=== PATIENT | male | born 1985 | race Caucasian/White ===

== ENCOUNTER 2017-05-10 06:02 | Day surgery (SDC) | payer OTHER ==
[~2017-05-10] VITALS: Ht 182.9 cm; Wt 154.2 kg
[~2017-05-10 06:02] MED LIST: ALBU90OI INH; Bactrim Ds Tab1 EACH PO; DICL250 PO; FURO40 PO; GUAIFEN-CODEINE10 ML PO; IBUP800 PO; Keflex500 MG PO; LEVO750 PO; POTCHL20ER PO; Percocet 5-3251 EACH PO; Tylenol With C1 EACH PO
== END 2017-05-10 23:19 | disposition home or self-care (01) ==
LOC: ORSCMMR 06:02
PROVIDERS: Surgery
PROC: 0WUF0JZ Supplement Abdominal Wall with Synthetic Substitute, Open Approach (ICD-10-PCS; principal; 2017-05-10 07:30)
DX: K42.0 Umbilical hernia with obstruction, without gangrene (principal); G47.33 Obstructive sleep apnea (adult) (pediatric); J45.909 Unspecified asthma, uncomplicated; E66.01 Morbid (severe) obesity due to excess calories; Z68.42 Body mass index [BMI] 45.0-49.9, adult
CPT/HCPCS: C1781; J0690; J1100; J1885; J2250; J2405; J2710; J7120

== ENCOUNTER 2017-11-05 22:19 | Emergency (ER) | payer OTHER ==
[~2017-11-05] VITALS: Ht 185.4 cm; Wt 163.3 kg
[2017-11-06] MEDS ORDERED: Robaxin-750750 MG PO (02:23)
[2017-11-06] MEDS ORDERED: METPRE4DP PO (02:23)
== END 2017-11-06 02:35 | disposition home or self-care (01) ==
LOC: ER 22:19
DX: M54.31 Sciatica, right side (principal); Z88.1 Allergy status to other antibiotic agents
CPT/HCPCS: 93971; 96374; 96375; 99284; J1885; J3010

== ENCOUNTER 2019-05-10 19:45 | Emergency (ER) | payer OTHER ==
[~2019-05-10] VITALS: Ht 185.4 cm; Wt 122.5 kg
[~2019-05-10 19:45] MED LIST changes: +METPRE4DP PO; +Robaxin-750750 MG PO
[2019-05-10 20:30] LABS: Source, Urine Clean Catch
[2019-05-10 20:32] LABS: Bilirubin, Urine Neg (Neg); Blood, Urine Neg (Neg); Glucose Qualitative, Urine Neg (Neg); Ketones, Urine 1+ (Neg); Leukocyte Esterase, Urine Neg (Neg); Nitrite, Urine Neg (Neg); Protein, Urine 1+ (Neg); Urobilinogen, Urine 1+ (Normal)
[2019-05-10 20:44] LABS: Appearance, Urine Clear (Clear); Color, Urine Yellow (P-Yellow)
[2019-05-10 20:48] LABS: BASOPHILS ABSOLUTE AUTO 0.05 K/mm3 (0.00-0.23); BASOPHILS PERCENT AUTO 1 % (0-2); EOSINOPHILS PERCENT AUTO 5 % (0-6); Hematocrit 46.2 % (37.0-53.0); Hemoglobin 15.2 g/dL (13.5-17.5); IMMATURE GRAN ABSOLUTE AUTO 0.03 K/mm3 (0.00-0.10); IMMATURE GRAN PERCENT AUTO 0 % (0-1); LYMPHOCYTES ABSOLUTE AUTO 2.16 K/mm3 (0.84-5.20); LYMPHOCYTES PERCENT AUTO 26 % (21-46); MONOCYTES ABSOLUTE AUTO 0.73 K/mm3 (0.16-1.47); MONOCYTES PERCENT AUTO 9 % (4-13); Mean Corpuscular HGB 28.6 pg (26.0-34.0); Mean Corpuscular HGB Conc 32.9 g/dL (31.5-36.5); Mean Corpuscular Volume 87 fL (80-100); Mean Platelet Volume 9.6 fL (9.1-12.4); NEUTROPHILS ABSOLUTE AUTO 4.89 K/mm3 (1.96-9.15); NEUTROPHILS PERCENT AUTO 59 % (41-73); Platelet Count 359 K/mm3 (150-400); RDW Coefficient Variation 13.5 % (11.7-14.2); Red Blood Cell Count 5.31 M/mm3 (4.30-5.90); White Blood Cell Count 8.26 K/mm3 (4.00-11.30)
[2019-05-10 21:06] LABS: Alanine Aminotransfer (ALT/SGP 39 U/L (12-78); Albumin, Blood 3.6 g/dL (3.4-5.0); Alk Phos 55 U/L (50-136); Anion Gap 8 mmol/L (6-16); Aspartate Aminotrans (AST/SGOT 26 U/L (12-37); Bilirubin, Total 0.4 mg/dL (0.1-1.0); Blood Urea Nitrogen 21 mg/dL (8-24); Bun/Creatinine Ratio 19.6 (12.0-20.0); CO2, Blood 24 mmol/L (21-32); Calcium, Blood 8.6 mg/dL (8.5-10.1); Chloride, Blood 110 mmol/L (98-108); Creatinine, Blood 1.07 mg/dL (0.60-1.20); Globulin, Blood 3.7 g/dL (2.2-4.0); Glomerular Filtration Rate >60 (60-); Glucose, Blood 106 mg/dL (70-99); Potassium, Blood 4.2 mmol/L (3.5-5.5); Sodium, Blood 142 mmol/L (136-145); Total Protein, Blood 7.3 g/dL (6.4-8.2)
[2019-05-10] MEDS ORDERED: MONT10T PO (21:38)
[2019-05-10] MEDS ORDERED: Sudogest30 MG PO (21:38)
[2019-05-10] MEDS ORDERED: Atarax10 MG PO (21:39)
[2019-05-10] MEDS ORDERED: Prednisone20 MG PO (21:55)
[2019-05-10] MEDS ORDERED: AZIT250 PO (21:55)
== END 2019-05-10 22:03 | disposition home or self-care (01) ==
LOC: ER 19:45
PROVIDERS: Physician Assistant
DX: N43.3 Hydrocele, unspecified (principal); R05 Cough; F17.210 Nicotine dependence, cigarettes, uncomplicated; Z88.1 Allergy status to other antibiotic agents
CPT/HCPCS: 36415; 71046; 76870; 80053; 85025; 94640; 99284-25; J7512

== ENCOUNTER → 2019-07-19 | Outpatient (CLI) | payer OTHER ==
[~2019-07-19] MED LIST changes: +AZIT250 PO; +Atarax10 MG PO; +MONT10T PO; +Prednisone20 MG PO; +Sudogest30 MG PO
== END ==
LOC: LAB SHORT 08:10 → LAB 08:10
DX: J02.9 Acute pharyngitis, unspecified (principal)
CPT/HCPCS: 87081

== ENCOUNTER 2020-01-01 11:14 | Day surgery (SDC) | payer OTHER ==
[~2020-01-01] VITALS: Ht 185.4 cm; Wt 129.5 kg
[~2020-01-01 11:14] MED LIST changes: +EPIPEN 2-P0.3 MG/0.1; +SILD50TA PO
[2020-01-01] MEDS ORDERED: QSYMIA 7.5 MG-1 EAC1 (11:38)
--- NOTE | 2020-01-01 13:18 | NUR ---
01/01/20 1318 Nevaeh Darling LATE ENTRY----PATIENT ONLY COMPLAINT AFTER PROCEDURE WAS HEADACHE. HE ADMITTED THAT HE DRINKS A LOT OF CAFFEINE THROUGHOUT THE DAY AND HAS NOT HAD ANY YET TODAY. HE WAS GIVEN A DRINK OF HIS CHOICE THAT HAD CAFFEINE AND HE VERBALIZES UNDERSTANDING THAT HE WILL CALL IF HEADACHE WORSENS
== END 2020-01-01 13:10 | disposition home or self-care (01) ==
LOC: ORSCSDS 11:14
PROVIDERS: Student in an Organized Health Care Education/Training Program
PROC: 0DBL8ZX Excision of Transverse Colon, Via Natural or Artificial Opening Endoscopic, Diagnostic (ICD-10-PCS; principal; 2020-01-01 12:30)
PROC: 0DBM8ZX Excision of Descending Colon, Via Natural or Artificial Opening Endoscopic, Diagnostic (ICD-10-PCS; principal; 2020-01-01 12:30)
PROC: 0DBE8ZX Excision of Large Intestine, Via Natural or Artificial Opening Endoscopic, Diagnostic (ICD-10-PCS; principal; 2020-01-01 12:30)
PROC: 0DBP8ZX Excision of Rectum, Via Natural or Artificial Opening Endoscopic, Diagnostic (ICD-10-PCS; principal; 2020-01-01 12:30)
DX: R19.7 Diarrhea, unspecified (principal); K52.9 Noninfective gastroenteritis and colitis, unspecified; D12.3 Benign neoplasm of transverse colon; D12.8 Benign neoplasm of rectum; K62.1 Rectal polyp; K63.5 Polyp of colon; G47.33 Obstructive sleep apnea (adult) (pediatric); J45.909 Unspecified asthma, uncomplicated; F17.210 Nicotine dependence, cigarettes, uncomplicated; R73.03 Prediabetes; E66.01 Morbid (severe) obesity due to excess calories; Z68.37 Body mass index [BMI] 37.0-37.9, adult; Z79.899 Other long term (current) drug therapy
CPT/HCPCS: 88305; J2250; J2704; J7120

== ENCOUNTER 2020-02-26 02:20 | Emergency (ER) | payer OTHER ==
[~2020-02-26] VITALS: Ht 185.4 cm; Wt 120.2 kg
[~2020-02-26 02:20] MED LIST changes: +QSYMIA 7.5 MG-1 EAC1
[2020-02-26] MEDS ORDERED: KEFLEX500 MG PO (03:02)
== END 2020-02-26 03:15 | disposition home or self-care (01) ==
LOC: ER 02:20
DX: H60.12 Cellulitis of left external ear (principal); F17.210 Nicotine dependence, cigarettes, uncomplicated; Z88.1 Allergy status to other antibiotic agents; Z79.899 Other long term (current) drug therapy
CPT/HCPCS: 96372; 99282-25; A9270-GY; J1885

== ENCOUNTER 2020-05-05 06:30 | Emergency (ER) | payer OTHER ==
[~2020-05-05] VITALS: Ht 185.4 cm; Wt 131.5 kg
[~2020-05-05 06:30] MED LIST changes: +KEFLEX500 MG PO
[2020-05-05] MEDS ORDERED: IBUP800 PO (06:47)
[2020-05-05] MEDS ORDERED: CEPH500 PO (06:47)
[2020-05-05] MEDS ORDERED: CIPRODEX OTIC7.5 M1 LEFTEAR (06:47)
[2020-05-05] MEDS ORDERED: CODACE30 PO (06:47)
== END 2020-05-05 06:50 | disposition home or self-care (01) ==
LOC: ER 06:30
DX: H60.12 Cellulitis of left external ear (principal); H60.92 Unspecified otitis externa, left ear; F17.210 Nicotine dependence, cigarettes, uncomplicated; Z88.1 Allergy status to other antibiotic agents
CPT/HCPCS: 99283; A9270-GY

== ENCOUNTER 2020-12-30 21:32 | Emergency (ER) | payer OTHER ==
[~2020-12-30] VITALS: Ht 185.4 cm; Wt 117.9 kg
[~2020-12-30 21:32] MED LIST changes: +CEPH500 PO; +CIPRODEX OTIC7.5 M1 LEFTEAR; +CODACE30 PO
== END 2020-12-30 23:50 | disposition home or self-care (01) ==
LOC: ER 21:32
DX: B34.9 Viral infection, unspecified (principal); F17.210 Nicotine dependence, cigarettes, uncomplicated; Z88.1 Allergy status to other antibiotic agents; Z20.822 Contact with and (suspected) exposure to COVID-19
CPT/HCPCS: 99282

== ENCOUNTER → 2021-01-23 | Outpatient (CLI) | payer OTHER | END | disposition home or self-care (01) | LOC: LAB 16:35 → LAB SHORT 16:35 | DX: Z20.822 Contact with and (suspected) exposure to COVID-19 (principal) | CPT/HCPCS: U0003 ==

== ENCOUNTER 2022-07-04 16:57 | Emergency (ER) | payer OTHER ==
[~2022-07-04] VITALS: Ht 182.9 cm; Wt 124.7 kg
[2022-07-04] MEDS ORDERED: Amoxicillin875 MG PO (17:18)
== END 2022-07-04 17:20 | disposition home or self-care (01) ==
LOC: ER 16:57
DX: H60.02 Abscess of left external ear (principal); F17.210 Nicotine dependence, cigarettes, uncomplicated; Z88.1 Allergy status to other antibiotic agents
CPT/HCPCS: 69000; 99282-25

== ENCOUNTER 2022-07-09 02:42 | Emergency (ER) | payer OTHER ==
[~2022-07-09] VITALS: Ht 185.4 cm; Wt 124.7 kg
[~2022-07-09 02:42] MED LIST changes: +Amoxicillin875 MG PO
[2022-07-09] MEDS ORDERED: SULTRIDS PO (03:20)
== END 2022-07-09 03:47 | disposition home or self-care (01) ==
LOC: ER 02:42
DX: H60.02 Abscess of left external ear (principal); F17.210 Nicotine dependence, cigarettes, uncomplicated; Z88.1 Allergy status to other antibiotic agents
CPT/HCPCS: 69000; 99282-25

== ENCOUNTER 2022-12-31 14:55 | Emergency (ER) | payer OTHER ==
[~2022-12-31] VITALS: Ht 185.4 cm; Wt 113.4 kg
[~2022-12-31 14:55] MED LIST changes: +SULTRIDS PO
[2022-12-31 15:01] VITALS: BP 140/95
== END 2022-12-31 15:40 | disposition home or self-care (01) ==
LOC: ER 14:55
DX: S61.112A Laceration without foreign body of left thumb with damage to nail, initial encounter (principal); Z23 Encounter for immunization; F17.210 Nicotine dependence, cigarettes, uncomplicated; Z88.1 Allergy status to other antibiotic agents; Z79.899 Other long term (current) drug therapy; W26.0XXA Contact with knife, initial encounter
CPT/HCPCS: 12001; 90471; 90714; 90715; 99282-25

== ENCOUNTER 2023-03-27 17:47 | Emergency (ER) | payer OTHER ==
[~2023-03-27] VITALS: Ht 185.4 cm; Wt 122.5 kg
[2023-03-27 20:59] VITALS: BP 133/79
== END 2023-03-27 21:39 | disposition home or self-care (01) ==
LOC: ER 17:47
DX: R51.9 Headache, unspecified (principal); F17.210 Nicotine dependence, cigarettes, uncomplicated; Z88.1 Allergy status to other antibiotic agents; Z79.899 Other long term (current) drug therapy
CPT/HCPCS: 70450; 96374; 96375; 99284-25; J0780; J1200; J1885; J2405; J7030

== ENCOUNTER 2023-04-09 08:00 | Emergency (ER) | payer OTHER ==
[~2023-04-09] VITALS: Ht 185.4 cm; Wt 124.7 kg
[2023-04-09] MEDS ORDERED: BUTALBITAL-ASA1 EACH PO (08:18)
[2023-04-09] MEDS ORDERED: IBU800 MG PO (08:18)
[2023-04-09] MEDS ORDERED: CYCL10 PO (11:51)
[2023-04-09 11:59] VITALS: BP 134/88
== END 2023-04-09 12:00 | disposition home or self-care (01) ==
LOC: ER 08:00
DX: M54.2 Cervicalgia (principal); R51.9 Headache, unspecified; F17.210 Nicotine dependence, cigarettes, uncomplicated; Z79.899 Other long term (current) drug therapy
CPT/HCPCS: 99283

== ENCOUNTER 2023-11-10 11:14 | Inpatient (IN) | payer OTHER ==
[~2023-11-10] VITALS: Ht 185.4 cm; Wt 110.6 kg
[~2023-11-10 11:14] MED LIST changes: +BUTALBITAL-ASA1 EACH PO; +CYCL10 PO; +IBU800 MG PO
[2023-11-10 12:02] LABS: Albumin, Blood 3.7 g/dL (3.4-5.0); Albumin/Globulin Ratio 0.9 (0.8-1.8); Bilirubin, Total 0.8 mg/dL (0.1-1.0); Bun/Creatinine Ratio 28.5 (12.0-20.0); Calcium, Blood 9.5 mg/dL (8.5-10.1); Creatinine, Blood 0.63 mg/dL (0.60-1.20); Globulin, Blood 4.1 g/dL (2.2-4.0); Magnesium, Blood 1.8 mg/dL (1.6-2.4); Total Protein, Blood 7.8 g/dL (6.4-8.2)
[2023-11-10 12:13] LABS: Influenza A, PCR NEGATIVE (NEGATIVE); Influenza B, PCR NEGATIVE (NEGATIVE); Resp Syncytial Virus, PCR NEGATIVE (NEGATIVE); SARS-Cov-2 (COVID-19) PCR, MMC NEGATIVE (NEGATIVE)
[2023-11-10 13:30] LABS: BASOPHILS ABSOLUTE AUTO 0.02 K/mm3 (0.00-0.23); BASOPHILS PERCENT AUTO 0 % (0-2); EOSINOPHILS ABSOLUTE AUTO 0.16 K/mm3 (0.00-0.68); EOSINOPHILS PERCENT AUTO 2 % (0-6); Hematocrit 47.4 % (37.0-53.0); Hemoglobin 16.3 g/dL (13.5-17.5); IMMATURE GRAN ABSOLUTE AUTO 0.02 K/mm3 (0.00-0.10); IMMATURE GRAN PERCENT AUTO 0 % (0-1); LYMPHOCYTES ABSOLUTE AUTO 2.05 K/mm3 (0.84-5.20); LYMPHOCYTES PERCENT AUTO 28 % (21-46); MONOCYTES ABSOLUTE AUTO 1.02 K/mm3 (0.16-1.47); MONOCYTES PERCENT AUTO 14 % (4-13); Mean Corpuscular HGB Conc 34.4 g/dL (31.5-36.5); Mean Corpuscular Volume 81 fL (80-100); Mean Platelet Volume 11.4 fL (9.1-12.4); NEUTROPHILS ABSOLUTE AUTO 4.18 K/mm3 (1.96-9.15); NEUTROPHILS PERCENT AUTO 56 % (41-73); Platelet Count 308 K/mm3 (150-400); RDW Coefficient Variation 12.7 % (11.7-14.2); RDW Standard Deviation 37.8 fL (35.1-46.3); Red Blood Cell Count 5.83 M/mm3 (4.30-5.90); White Blood Cell Count 7.45 K/mm3 (4.00-11.30)
[2023-11-10] MEDS ORDERED: NS 1,000 ML IV SCH (15:05)
--- NOTE | 2023-11-10 15:59 | NUR ---
REPORT RECIEVED [id number] FROM ER NURSE.
[2023-11-10] MEDS ORDERED: Metoprolol Tartrate 25 MG Tab PO SCH (16:00)
[2023-11-10 16:14] LABS: CHOL/HDL RATIO 3.8; Cholesterol 90 mg/dL (50-200); HDL Cholesterol 24 mg/dL (>39); LDL/HDL RATIO 1.9; Low Density Lipoprotein Chol 46 mg/dL (0-110); Triglycerides 100 mg/dL (30-160); Very Low Density Lipoprot Chol 20 mg/dL (6-32)
[2023-11-10 16:16] VITALS: BP 128/102
--- NOTE | 2023-11-10 16:47 | NUR ---
ARRIVAL TO UNIT PT ARRIVED TO PCU AT 1605 VIA GURNEY AND ON RA. PT A/O X4 AND COOLPERATIVE. PT ABLE TO TRANSFER FROM GURNEY TO BED INDEPENDENTLY, TOLERATED WELL. HR AFIB 100-120'S AT ARRIVAL AND DID NOT INCREASE WHEN AMBULATING TO BED. PT ORIENTED TO ROOM AND CALL LIGHT. PT PROVIDED LIGHTERS THAT HE HAD ON HIS PERSON, LIGHTERS IN LOCK BOX OUTSIDE OF ROOM. PT INFORMED THAT [facility] IS A SMOKE FREE FACILITY AND THAT ANY VISITORS NEED TO LEAVE IGNITION RISK DEVICES IN THEIR CAR, PT AGREED. PT LUNGS WHEEZY T/O AT TIME OF ARRIVAL, PT HAS HISTORY OF ASTHMA AND IS A 2PK/DAY SMOKER.
[2023-11-10] MEDS ORDERED: Nicotine Polacrilex 2 MG Gum PO PRN (17:00)
[2023-11-10 17:03] LABS: Free Thyroxine 4.51 ng/dL (0.70-1.60)
[2023-11-10 17:05] LABS: Triiodothyronine, Free 17.82 pg/mL (2.18-3.98)
[2023-11-10] MEDS ORDERED: Methimazole 10 MG Tab PO SCH ×2 (18:00)
[2023-11-10] MEDS ORDERED: Ipratropium/Albuterol SulF 2.5-0.5MG/3 ML Amp INH PRN (19:35)
[2023-11-10 19:42] LABS: Stool Occult Blood Guaiac 1 Neg (Neg)
[2023-11-10 19:55] VITALS: BP 118/82
[2023-11-10] MEDS ORDERED: Lactated Ringer's 1,000 ML IV SCH (20:00)
[2023-11-10 20:57] LABS: Adenovirus F 40/41 Not Detected (NOT DETECT); Astrovirus Not Detected (NOT DETECT); Campylobacter Sp Not Detected (NOT DETECT); Cryptosporidium Not Detected (NOT DETECT); Cyclospora Cayetanensis Not Detected (NOT DETECT); E. Coli O157 Not Detected (NOT DETECT); Entamoeba Histolytica Not Detected (NOT DETECT); Enteroaggregative E. coli-EAEC Not Detected (NOT DETECT); Enteropathogenic E. coli-EPEC Not Detected (NOT DETECT); Enterotoxigenic E. coli-ETEC Not Detected (NOT DETECT); Giardia Lamblia Not Detected (NOT DETECT); Norovirus GI/GII Not Detected (NOT DETECT); Plesiomonas Shigelloides Not Detected (NOT DETECT); Rotavirus A Not Detected (NOT DETECT); Salmonella Sp Not Detected (NOT DETECT); Sapovirus Not Detected (NOT DETECT); Shiga Toxin-prod E. coli-STEC Not Detected (NOT DETECT); Shigella/Enteroin E. coli-EIEC Not Detected (NOT DETECT); Vibrio Cholerae Not Detected (NOT DETECT); Vibrio Sp Not Detected (NOT DETECT); Yersinia Enterocolitica Not Detected (NOT DETECT)
[2023-11-10 23:00] VITALS: BP 124/76
[2023-11-11] MEDS ORDERED: Hydrocortisone Sod Succinate 100 MG Vial IV SCH
[2023-11-11] MEDS ORDERED: Propranolol HCL 20 MG TAB PO SCH
--- NOTE | 2023-11-11 04:38 | NUR ---
SHIFT SUMMARY. SHIFT HAS BEEN UNREMARKABLE. PT HAS BEEN AOX4, PLEASANT, COOPERATIVE WITH CARE, CALLS APPROPRIATELY, ABLE TO MAKE NEEDS KNOWN. INDEPENDENT WITHIN ROOM, CALLS APPROPRIATELY FOR ASSISTANCE. TELE ON THROUGHOUT SHIFT, NO RHYTHM CHANGES HR HAS BEEN BETWEEN 90s-100s THROUGHOUT SHIFT. BP STABLE. MAINTAINS ADEQUATE SATURATION ON ROOM AIR. NO PAIN REPORTED THROUGHOUT SHIFT. HAS BEEN WEARING CPAP THROUGHOUT MOST OF SHIFT. BED LOCKED IN LOWEST POSITION. CALL LIGHT LEFT WTIHIN REACH. CONTINUING TO MONITOR.
[2023-11-11 04:50] VITALS: BP 125/56
[2023-11-11 06:11] LABS: Albumin, Blood 3.2 g/dL (3.4-5.0); Albumin/Globulin Ratio 0.9 (0.8-1.8); Bilirubin, Total 0.6 mg/dL (0.1-1.0); Bun/Creatinine Ratio 32.9 (12.0-20.0); Calcium, Blood 9.2 mg/dL (8.5-10.1); Creatinine, Blood 0.49 mg/dL (0.60-1.20); Globulin, Blood 3.6 g/dL (2.2-4.0); Potassium, Blood 4.1 mmol/L (3.5-5.5); Total Protein, Blood 6.8 g/dL (6.4-8.2)
[2023-11-11 07:56] VITALS: BP 131/86
[2023-11-11] MEDS ORDERED: Enoxaparin 40 MG/0.4 ML SYR SC SCH (09:00)
[2023-11-11] MEDS ORDERED: Psyllium 1 EA Pack PO SCH (09:00)
[2023-11-11 11:27] VITALS: BP 134/73
--- NOTE | 2023-11-11 15:04 | NUR ---
ASSUMPTION OF CARE Pt resting in bed, oriented x4, on room air. Monitor shows afib with HR 90's-120, denies chest pain or shortness of breath.
[2023-11-11 16:21] VITALS: BP 127/87
--- NOTE | 2023-11-11 16:24 | NUR ---
REPORT GIVEN TO MEDICAL FLOOR NURSE, PT TRANSPORTED TO ROOM 341 VIA WHEELCHAIR
--- NOTE | 2023-11-11 17:19 | NUR ---
PATIENT TRANSFERRED FROM PCU APPROX 1630 TODAY. HE IS AO X 4. INDEPENDANT IN ROOM. CURRENLTY ON TELE RHYTHM IS AFIB AT 95. HIS LUNGS ARE CLEAR THROUGHOUT AND CALL LIGHT IN REACH. IV IS SALINE LOCKED.
[2023-11-11 19:37] VITALS: BP 138/83
[2023-11-11] MEDS ORDERED: Acetaminophen 500 MG Tab PO PRN (20:15)
[2023-11-12 03:41] VITALS: BP 114/92
--- NOTE | 2023-11-12 04:18 | NUR ---
SHIFT SUMMARY PATIENT HAD NO ACUTE CHANGES. AXOX 4 AND INDEPENDENT IN ROOM. TELE MONITOR AFIB 90'S. PIV INTACT. DENIES CHEST PAIN, SOB, AND N/V. VSS-FEBRILE WITH LOW GRADE TEMP 99.4. REPORTED MIRANDA X ONE AND TYLENOL 500 MG GIVEN X ONE AND NICORETTE GUM GIVEN FOR NICOTINE CRAVINGS. SLEPT SECOND PART OF SHIFT. CALL LIGHT IN REACH. BED IN LOWEST POSITION. WILL CONTINUE TO MONITOR UNTIL DAY SHIFT NURSE ASSUMES CARE.
--- NOTE | 2023-11-12 06:14 | NUR ---
PATIENT REPORTS HE WANTS TO LEAVE AMA. HAVING INCREASE AGITATION. TELE MONITOR REPORTS HR UP TO 150. PATIENT PULLING TELE LEADS OFF AND WANTS HIS PIV REMOVED. PATIENT ENCOURAGE TO STAY UNTIL DR CAN DC HIM. PATIENT WANTS TO LEAVE WHEN FAMILY GETS HERE FROM [place]. RJ.
[2023-11-12 06:34] LABS: Bun/Creatinine Ratio 24.6 (12.0-20.0); Calcium, Blood 9.2 mg/dL (8.5-10.1); Creatinine, Blood 0.53 mg/dL (0.60-1.20)
--- NOTE | 2023-11-12 06:37 | NUR ---
PATIENT LEFT AMA AND SIGNED AMA FORM. PERSONAL BELONGINGS TAKEN. WILL NOTIFY HOSPITALIST.
[2023-11-13 09:49] LABS: TSH RECEPTOR ANTIBODY 6.06 IU/L (<=1.75)
[2023-11-13] MEDS ORDERED: AMOCLA875 PO (14:10)
[2023-11-13] MEDS ORDERED: METHI10 PO (14:13)
[2023-11-13] MEDS ORDERED: METO50 PO (14:13)
== END 2023-11-12 06:44 | disposition left against medical advice (07) | DRG 310 ==
LOC: ER 11:14 → PCU 11:15 → MEDS 11-11 17:02
PROVIDERS: Family Medicine; Physician Assistant; Student in an Organized Health Care Education/Training Program; ADMIT Hospitalist
DX: I48.91 Unspecified atrial fibrillation (principal); J45.909 Unspecified asthma, uncomplicated; R19.7 Diarrhea, unspecified; E05.90 Thyrotoxicosis, unspecified without thyrotoxic crisis or storm; F17.210 Nicotine dependence, cigarettes, uncomplicated; Z53.29 Procedure and treatment not carried out because of patient's decision for other reasons; R63.4 Abnormal weight loss; E04.1 Nontoxic single thyroid nodule; Z88.1 Allergy status to other antibiotic agents; Z79.899 Other long term (current) drug therapy; Z98.890 Other specified postprocedural states; Z68.31 Body mass index [BMI] 31.0-31.9, adult
CPT/HCPCS: 0241U; 36415; 76536; 80048; 80053; 80061; 82272; 83036; 83520; 83735; 84439; 84443; 84481; 84484; 85025; 87507; 93005; 93010; 93306; 94660; 94760; 94762; 96360; 96361; 96372; 96374; 96376; 99285-25; A9270; G0378; J1650; J1720; J7030; J7120

== ENCOUNTER 2023-11-12 11:21 | Inpatient (IN) | payer OTHER ==
[~2023-11-12] VITALS: Ht 185.4 cm; Wt 110.4 kg
[2023-11-12 12:31] LABS: Albumin, Blood 3.6 g/dL (3.4-5.0); Bilirubin, Total 0.6 mg/dL (0.1-1.0); Bun/Creatinine Ratio 32.1 (12.0-20.0); Calcium, Blood 9.2 mg/dL (8.5-10.1); Creatinine, Blood 0.5 mg/dL (0.60-1.20); Globulin, Blood 3.7 g/dL (2.2-4.0); Potassium, Blood 4.2 mmol/L (3.5-5.5); Total Protein, Blood 7.3 g/dL (6.4-8.2)
[2023-11-12 15:49] LABS: Hematocrit 46.2 % (37.0-53.0); Hemoglobin 15.5 g/dL (13.5-17.5); Mean Corpuscular HGB 27.5 pg (26.0-34.0); Mean Corpuscular HGB Conc 33.5 g/dL (31.5-36.5); Mean Corpuscular Volume 82 fL (80-100); Mean Platelet Volume 10.7 fL (9.1-12.4); Platelet Count 297 K/mm3 (150-400); RDW Coefficient Variation 12.4 % (11.7-14.2); RDW Standard Deviation 37.4 fL (35.1-46.3); Red Blood Cell Count 5.64 M/mm3 (4.30-5.90); White Blood Cell Count 7.02 K/mm3 (4.00-11.30)
[2023-11-12 16:25] LABS: BAND PERCENT MAN 1 % (0-8); BASOPHILS PERCENT MAN 0 % (0-2); EOSINOPHILS PERCENT MAN 0 % (0-6); LYMPHOCYTES % ATYPICAL MANUAL 2 % (0-0); LYMPHOCYTES ABSOLUTE MAN 1.61 K/mm3 (0.84-5.20); MONOCYTES PERCENT MAN 10 % (4-13); SEG NEUTROPHILS PERCENT MAN 66 % (41-73); TOTAL CELLS COUNTED 100
[2023-11-12 16:28] LABS: LYMPHOCYTES PERCENT MAN 21 % (21-46)
[2023-11-12] MEDS ORDERED: Enoxaparin 40 MG/0.4 ML SYR SC SCH (17:00)
[2023-11-12] MEDS ORDERED: Nicotine Polacrilex 2 MG Gum PO SCH (18:00)
[2023-11-12] MEDS ORDERED: Methimazole 10 MG Tab PO SCH (18:00)
[2023-11-12] MEDS ORDERED: Metoprolol Tartrate 25 MG Tab PO SCH (21:00)
[2023-11-13 05:46] LABS: Hematocrit 43.6 % (37.0-53.0); Hemoglobin 14.8 g/dL (13.5-17.5); Mean Corpuscular HGB 27.7 pg (26.0-34.0); Mean Corpuscular HGB Conc 33.9 g/dL (31.5-36.5); Mean Corpuscular Volume 82 fL (80-100); Mean Platelet Volume 10.2 fL (9.1-12.4); Platelet Count 268 K/mm3 (150-400); RDW Coefficient Variation 12.3 % (11.7-14.2); Red Blood Cell Count 5.34 M/mm3 (4.30-5.90); White Blood Cell Count 6.27 K/mm3 (4.00-11.30)
[2023-11-13 06:18] LABS: Bun/Creatinine Ratio 25.2 (12.0-20.0); Calcium, Blood 8.8 mg/dL (8.5-10.1); Creatinine, Blood 0.52 mg/dL (0.60-1.20)
[2023-11-13] MEDS ORDERED: Metoprolol Tartrate 50 MG Tab PO SCH (08:00)
[2023-11-13 08:30] VITALS: BP 136/80
[2023-11-13] MEDS ORDERED: Metoprolol Tartrate 25 MG Tab PO SCH (09:00)
[2023-11-13] MEDS ORDERED: AMOCLA875 PO (14:10)
[2023-11-13] MEDS ORDERED: METHI10 PO (14:13)
[2023-11-13] MEDS ORDERED: METO50 PO (14:13)
== END 2023-11-13 14:38 | disposition home or self-care (01) | DRG 310 ==
LOC: ER 11:21 → ERHOLD 17:11
PROVIDERS: Family Medicine; Student in an Organized Health Care Education/Training Program; ADMIT Hospitalist
DX: I48.91 Unspecified atrial fibrillation (principal); E05.90 Thyrotoxicosis, unspecified without thyrotoxic crisis or storm; Z98.890 Other specified postprocedural states; F17.210 Nicotine dependence, cigarettes, uncomplicated; Z79.899 Other long term (current) drug therapy; Z88.1 Allergy status to other antibiotic agents; Z71.6 Tobacco abuse counseling
CPT/HCPCS: 80048; 80053; 85025; 85027; 93005; 93010; 99285-25; A9270; J1650

== ENCOUNTER 2023-12-17 10:25 | Emergency (ER) | payer OTHER ==
[~2023-12-17] VITALS: Ht 182.9 cm; Wt 108.9 kg
[~2023-12-17 10:25] MED LIST changes: +AMOCLA875 PO; +METHI10 PO; +METO50 PO
[2023-12-17 10:27] VITALS: BP 138/90
[2023-12-17 10:52] LABS: BASOPHILS ABSOLUTE AUTO 0.02 K/mm3 (0.00-0.23); BASOPHILS PERCENT AUTO 0 % (0-2); EOSINOPHILS PERCENT AUTO 5 % (0-6); Hematocrit 42.4 % (37.0-53.0); Hemoglobin 13.9 g/dL (13.5-17.5); IMMATURE GRAN ABSOLUTE AUTO 0.02 K/mm3 (0.00-0.10); IMMATURE GRAN PERCENT AUTO 0 % (0-1); LYMPHOCYTES ABSOLUTE AUTO 1.71 K/mm3 (0.84-5.20); LYMPHOCYTES PERCENT AUTO 27 % (21-46); MONOCYTES ABSOLUTE AUTO 0.59 K/mm3 (0.16-1.47); MONOCYTES PERCENT AUTO 9 % (4-13); Mean Corpuscular HGB 27.9 pg (26.0-34.0); Mean Corpuscular HGB Conc 32.8 g/dL (31.5-36.5); Mean Corpuscular Volume 85 fL (80-100); Mean Platelet Volume 9.8 fL (9.1-12.4); NEUTROPHILS ABSOLUTE AUTO 3.74 K/mm3 (1.96-9.15); NEUTROPHILS PERCENT AUTO 59 % (41-73); Platelet Count 260 K/mm3 (150-400); RDW Coefficient Variation 15.3 % (11.7-14.2); RDW Standard Deviation 47.5 fL (35.1-46.3); Red Blood Cell Count 4.99 M/mm3 (4.30-5.90); White Blood Cell Count 6.38 K/mm3 (4.00-11.30)
[2023-12-17 11:19] LABS: Alanine Aminotransfer (ALT/SGP 37 U/L (12-78); Albumin, Blood 3.5 g/dL (3.4-5.0); Albumin/Globulin Ratio 1.2 (0.8-1.8); Alk Phos 138 U/L (50-136); Anion Gap 13 mmol/L (3-11); Aspartate Aminotrans (AST/SGOT 28 U/L (12-37); Bilirubin, Total 0.6 mg/dL (0.1-1.0); Blood Urea Nitrogen 20 mg/dL (8-24); Bun/Creatinine Ratio 23.5 (12.0-20.0); CO2, Blood 18 mmol/L (21-32); Calcium, Blood 8.2 mg/dL (8.5-10.1); Chloride, Blood 116 mmol/L (98-108); Creatinine, Blood 0.85 mg/dL (0.60-1.20); Glomerular Filtration Rate 113 (60-); Glucose, Blood 125 mg/dL (70-99); Potassium, Blood 4.1 mmol/L (3.5-5.5); Sodium, Blood 143 mmol/L (136-145); Thyroid Stimulating Hormone <0.005 uIU/mL (0.360-4.800); Total Protein, Blood 6.5 g/dL (6.4-8.2); Triiodothyronine, Free 2.13 pg/mL (2.18-3.98)
== END 2023-12-17 13:41 | disposition left against medical advice (07) ==
LOC: ER 10:25
PROVIDERS: Physician Assistant
DX: R07.9 Chest pain, unspecified (principal)
CPT/HCPCS: 71046; 80053; 84439; 84443; 84481; 84484; 85025; 93005; 93010